=== PATIENT | female | born 1975 | race Caucasian/White ===

== ENCOUNTER 2016-08-11 05:11 | Emergency (ER) | payer SELFPAY ==
[~2016-08-11] VITALS: Ht 157.5 cm; Wt 93.4 kg
--- NOTE | 2016-08-11 05:11 | NUR ---
0447- PT [facility]. TAKEN TO BED 6
--- NOTE | 2016-08-11 05:15 | NUR ---
PATIENT PRESENTS TO ED WITH EPIGASTRIC PAIN . PT STATES PAIN IS RADIATING TO HER LEFT ARM . DENIES V/D; SKIN IS PINK/WARM/DRY; AAOX4 WITH EVEN AND STEADY GAIT; LUNGS CLEAR BL; HR EVEN AND REGULAR; PT DENIES ANY FEVER, CP, SOB, OR COUGH AT THIS TIME; PATIENT STATES PAIN OF 5/10 AT THIS TIME; VSS; PATIENT POSITIONED FOR COMFORT; HOB ELEVATED; BEDRAILS UP X2; BED DOWN. ER MD MADE AWARE OF PT STATUS.
[2016-08-11 05:16] VITALS: BP 128/72
--- NOTE | 2016-08-11 06:37 | NUR ---
Dr. Anderson evaluating patient at bedside.
[2016-08-11] MEDS ORDERED: NACL 0.9% 1,000 ML IV ONE (06:40)
[2016-08-11] MEDS ORDERED: KETOROLAC 30 MG/ML VIAL IVP ONE (06:40)
[2016-08-11 06:49] LABS: BASOPHILS # (AUTO) 0.1 K/uL (0.00-0.22); BASOPHILS % (AUTO) 1.3 % (0.0-2.0); EOSINOPHILS # (AUTO) 0.1 K/uL (0-0.4); EOSINOPHILS % (AUTO) 0.7 % (0.0-4.0); HEMATOCRIT 38.5 % (36-48); HEMOGLOBIN 12.8 g/dL (12.0-16.0); LYMPHOCYTES # (AUTO) 1.9 K/uL (2.5-16.5); LYMPHOCYTES % (AUTO) 20.6 % (20.5-51.1); MEAN CORPUSCULAR HEMOGLOBIN 29 pg (27-31); MEAN CORPUSCULAR HGB CONC 33 g/dL (33-37); MEAN CORPUSCULAR VOLUME 86 fL (80-94); MONOCYTES # (AUTO) 0.3 K/uL (0.8-1.0); MONOCYTES % (AUTO) 3.6 % (1.7-9.3); NEUTROPHILS # (AUTO) 6.7 K/uL (1.8-7.7); NEUTROPHILS % (AUTO) 73.8 % (42.2-75.2); PLATELET COUNT (AUTO) 235 K/uL (140-450); RED BLOOD CELL COUNT(AUTO) 4.46 MIL/uL (4.20-5.40); RED CELL DISTRIBUTION WIDTH 12.7 % (11.6-13.7); WHITE BLOOD COUNT (AUTO) 9.1 K/uL (4.8-10.8)
[2016-08-11 07:00] LABS: ALBUMIN 3.5 g/dL (3.4-5.0); ANION GAP 10.9 (8-16); CALCIUM 8.7 mg/dL (8.5-10.1); CREATININE 0.8 mg/dL (0.6-1.3); POTASSIUM 3.9 mmol/L (3.5-5.1); TOTAL BILIRUBIN 0.8 mg/dL (0.0-1.0); TOTAL PROTEIN, SERUM 7.1 g/dL (6.4-8.2)
--- NOTE | 2016-08-11 07:00 | NUR ---
Ultrasound at bedside.
--- NOTE | 2016-08-11 07:12 | NUR ---
REPORT GIVEN TO YISEL VALENZUELA. TRANSFER OF CARE AT THIS TIME
[2016-08-11 07:20] LABS: APPEARANCE,URINE SL CLOUDY (CLEAR); BILIRUBIN,URINE 1+ (NEGATIVE); BLOOD, URINE 3+ (NEGATIVE); COLOR,URINE ORANGE (YELLOW); LEUKOCYTE ESTERASE ,URINE TRACE (NEGATIVE); NITRITE, URINE NEGATIVE (NEGATIVE); PH,URINE 5.5 (5.0-9.0); PROTEIN,URINE 1+ (NEGATIVE); UGLUCOSE NEGATIVE (NEGATIVE); UROBILINOGEN,URINE 0.2 EU/dL (0.2 - 1)
[2016-08-11 07:40] VITALS: BP 128/72
--- NOTE | 2016-08-11 07:40 | NUR ---
Patient discharged with v/s stable. Written and verbal after care instructions given and explained. Patient alert, oriented and verbalized understanding of instructions. Wheel Chair Assisted with to car. All questions addressed prior to discharge. ID band removed. Patient advised to follow up with PMD. Rx of OMEPRAZOLE given. Patient educated on indication of medication including possible reaction and side effects. Opportunity to ask questions provided and answered.
[2016-08-11 07:42] LABS: BACTERIA,URINE OCCASSIONAL /HPF (None Seen); ICTOTEST NEGATIVE (NEGATIVE); RBC,URINE >20 (MANY) /HPF (0-5); SQUAMOUS EPITHELIAL CELL,UR 0-3 (FEW) /LPF (0-3 (FEW)); WBC,URINE 0-5 (RARE) /HPF (0-5)
== END 2016-08-11 07:40 | disposition home or self-care (01) ==
LOC: MED 05:11
DX: K21.9 Gastro-esophageal reflux disease without esophagitis (principal)
CPT/HCPCS: 36415; 76705; 80053; 81001; 81025; 82150; 83690; 85025; 96361; 96374; 99285; J1885; J7030; Q0092

== ENCOUNTER 2016-10-20 09:42 | Emergency (ER) | payer MEDICAID ==
[~2016-10-20] VITALS: Ht 160 cm; Wt 85.7 kg
[2016-10-20 09:46] VITALS: BP 91/68
--- NOTE | 2016-10-20 09:53 | NUR ---
Patient ambulated to bed 05.
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
[2016-10-20] MEDS ORDERED: NACL 0.9% 1,000 ML IV SCH (09:56)
[2016-10-20] MEDS ORDERED: ACETAMINOPHEN EXTRA STRENGTH 500 MG TAB PO ONE (10:00)
--- NOTE | 2016-10-20 10:05 | NUR ---
Dr. House evaluating patient at bedside.
[2016-10-20] MEDS ORDERED: ONDANSETRON 4 MG/2 ML VIAL IVP ONE (10:10)
[2016-10-20 10:18] LABS: HEMATOCRIT 39.3 % (36-48); HEMOGLOBIN 12.9 g/dL (12.0-16.0); MEAN CORPUSCULAR HEMOGLOBIN 28 pg (27-31); MEAN CORPUSCULAR HGB CONC 33 g/dL (33-37); MEAN CORPUSCULAR VOLUME 86 fL (80-94); PLATELET COUNT (AUTO) 233 K/uL (140-450); RED BLOOD CELL COUNT(AUTO) 4.54 MIL/uL (4.20-5.40); RED CELL DISTRIBUTION WIDTH 13.1 % (11.6-13.7); WHITE BLOOD COUNT (AUTO) 12.9 K/uL (4.8-10.8)
[2016-10-20 10:28] LABS: ANION GAP 14.6 (8-16); CALCIUM 8.1 mg/dL (8.5-10.1); CARBON DIOXIDE 25.8 mmol/L (21-32); CREATININE 0.9 mg/dL (0.6-1.3); POTASSIUM 3.4 mmol/L (3.5-5.1)
[2016-10-20 10:29] LABS: APPEARANCE,URINE HAZY (CLEAR); BILIRUBIN,URINE NEGATIVE (NEGATIVE); BLOOD, URINE 2+ (NEGATIVE); COLOR,URINE YELLOW (YELLOW); LEUKOCYTE ESTERASE ,URINE NEGATIVE (NEGATIVE); NITRITE, URINE NEGATIVE (NEGATIVE); PROTEIN,URINE NEGATIVE (NEGATIVE); UGLUCOSE NEGATIVE (NEGATIVE); UROBILINOGEN,URINE 0.2 EU/dL (0.2 - 1)
[2016-10-20 10:33] LABS: BAND % (MANUAL) 4 % (0-8); LYMPHOCYTES % (MANUAL) 9 % (20-46); MONOCYTES % (MANUAL) 3 % (5-12); NEUTROPHILS % (MANUAL) 84 (43-65)
[2016-10-20 10:34] LABS: ALBUMIN 3.6 g/dL (3.4-5.0); TOTAL BILIRUBIN 1.2 mg/dL (0.0-1.0); TOTAL PROTEIN, SERUM 7.6 g/dL (6.4-8.2)
[2016-10-20 10:49] LABS: BACTERIA,URINE 1+ /HPF (None Seen); RBC,URINE 0-5 (RARE) /HPF (0-5); WBC,URINE 0-5 (RARE) /HPF (0-5); YEAST,URINE Few /HPF (None Seen)
--- NOTE | 2016-10-20 12:51 | NUR ---
PT RESTING COMFORTABLY, SLEEPING NO ACUTE DISTRESS, NO C/O PAIN AT THIS TIME, AWAITING ORDERS FOR DC PER MD
--- NOTE | 2016-10-20 13:06 | NUR ---
Patient discharged with v/s stable. Written and verbal after care instructions given and explained. Patient alert, oriented and verbalized understanding of instructions. Ambulatory with steady gait. All questions addressed prior to discharge. ID band removed. Patient advised to follow up with PMD. Rx of LIDOCAINE, ZITHROMAX, TYLENOL given. Patient educated on indication of medication including possible reaction and side effects. Opportunity to ask questions provided and answered.
[2016-10-20 13:07] VITALS: BP 105/62
== END 2016-10-20 13:06 | disposition home or self-care (01) ==
LOC: MED 09:42
DX: J11.1 Influenza due to unidentified influenza virus with other respiratory manifestations (principal); J02.9 Acute pharyngitis, unspecified
CPT/HCPCS: 36415; 80053; 81001; 81025; 82150; 83690; 85025; 87804; 96361; 96374; 99284; J2405; J7030

== ENCOUNTER 2020-04-14 13:22 | Emergency (ER) | payer MEDICAID ==
[~2020-04-14] VITALS: Ht 157.5 cm; Wt 83.5 kg
[2020-04-14 13:55] VITALS: BP 111/76
[2020-04-14] MEDS ORDERED: BACITRACIN OINT 500 UNITS/GM PKT TP ONE (14:15)
--- NOTE | 2020-04-14 14:20 | NUR ---
PT TAKEN TO XRAY
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
[2020-04-14 15:27] VITALS: BP 135/78
--- NOTE | 2020-04-14 15:28 | NUR ---
Patient discharged with v/s stable. Written and verbal after care instructions given and explained. Patient verbalized understanding. Ambulatory with steady gait. All questions addressed prior to discharge. Advised to follow up with PMD.
== END 2020-04-14 15:28 | disposition home or self-care (01) ==
LOC: MED 13:22
DX: S09.90XA Unspecified injury of head, initial encounter (principal); M25.511 Pain in right shoulder; M25.521 Pain in right elbow; J45.909 Unspecified asthma, uncomplicated; W03.XXXA Other fall on same level due to collision with another person, initial encounter; Y93.89 Activity, other specified; Y92.098 Other place in other non-institutional residence as the place of occurrence of the external cause; Y99.8 Other external cause status
CPT/HCPCS: 73030; 73080; 73110; 90471; 90715; 99284

== ENCOUNTER 2021-09-09 21:02 | Emergency (ER) | payer MEDICAID ==
[~2021-09-09] VITALS: Ht 157.5 cm; Wt 85.7 kg
[2021-09-09 21:25] VITALS: BP 151/93
--- NOTE | 2021-09-09 21:31 | NUR ---
PT WC ASSISTED TO BED 8
[2021-09-09] MEDS ORDERED: HYDR-636 PO (21:38)
[2021-09-09] MEDS ORDERED: LORazepam 1 MG TAB PO ONE (21:40)
[2021-09-09 22:11] VITALS: BP 141/75
--- NOTE | 2021-09-09 22:11 | NUR ---
Patient discharged with v/s stable. Written and verbal after care instructions given and explained. Patient alert, oriented and verbalized understanding of instructions. Ambulatory with steady gait. All questions addressed prior to discharge. ID band removed. Patient advised to follow up with PMD. Rx of HYDROXYZINE HYDROCHLORIDE given. Patient educated on indication of medication including possible reaction and side effects. Opportunity to ask questions provided and answered.
--- NOTE | 2021-09-09 22:56 | NUR ---
The patient's care was reviewed and supervised by Meghan Ritchie RN. Chart checked.
== END 2021-09-09 22:11 | disposition home or self-care (01) ==
LOC: MED 21:02
DX: F41.9 Anxiety disorder, unspecified (principal); I10 Essential (primary) hypertension; J45.909 Unspecified asthma, uncomplicated; Z79.899 Other long term (current) drug therapy
CPT/HCPCS: 99283